=== PATIENT | female | born 2000 | race Caucasian/White ===

== ENCOUNTER 2019-10-21 11:01 | Emergency (ER) | payer OTHER ==
[~2019-10-21] VITALS: Ht 167.6 cm; Wt 60.0 kg
[2019-10-21] MEDS ORDERED: AMITRIPTYLIN100 MG PO (11:09)
[2019-10-21] MEDS ORDERED: CELEBREX100 M1 PO (11:09)
[2019-10-21] MEDS ORDERED: BIRTH CONTROL (11:10)
[2019-10-21] MEDS ORDERED: [UNRECOGNIZED DRUG - OTHER] (11:10)
[2019-10-21 12:55] VITALS: BP 116/64
== END 2019-10-21 12:55 | disposition home or self-care (01) | DRG 605 ==
LOC: ED 11:01
DX: S90.32XA Contusion of left foot, initial encounter (principal); W55.12XA Struck by horse, initial encounter; Y93.K1 Activity, walking an animal; Y92.009 Unspecified place in unspecified non-institutional (private) residence as the place of occurrence of the external cause

== ENCOUNTER 2020-06-20 15:19 | Emergency (ER) | payer OTHER ==
[~2020-06-20] VITALS: Ht 167.6 cm; Wt 45.0 kg
[~2020-06-20 15:19] MED LIST: AMITRIPTYLIN100 MG PO; BIRTH CONTROL; CELEBREX100 M1 PO; [UNRECOGNIZED DRUG - OTHER]
[2020-06-20 16:31] LABS: HEMATOCRIT 39.4 % (37.0-47.0); HEMOGLOBIN 12.7 g/dl (12.0-16.0); IMMATURE GRANULOCYTES 0.1 % (0.0-5.0); MEAN CORPUSCULAR HGB 27.1 pG CALC (26.0-32.0); MEAN CORPUSCULAR HGB CONC 32.2 g/dL CAL (32.0-36.0); NEUT# 4.88 thou/uL (2.00-7.15); RED BLOOD COUNT 4.69 mill/uL (4.20-5.60)
[2020-06-20 16:34] LABS: URINE BILIRUBIN - DIPSTICK NEGATIVE (NEGATIVE); URINE BLOOD DIPSTICK NEGATIVE (NEGATIVE); URINE CLARITY CLEAR; URINE COLOR YELLOW; URINE GLUCOSE - DIPSTICK NEGATIVE (NEGATIVE); URINE KETONE NEGATIVE (NEGATIVE); URINE LEUK ESTERASE NEGATIVE (Negative); URINE NITRITE - DIPSTICK NEGATIVE (Negative); URINE PH 6.5 (4.5-8.0); URINE PROTEIN - DIPSTICK NEGATIVE (NEG-TRACE); URINE SPECIFIC GRAVITY 1.025; URINE UROBILINOGEN - DIPSTICK 0.2 E.U./dL (0.2)
[2020-06-20 16:51] LABS: ALBUMIN 4.2 g/dL (3.2-5.0); ALKALINE PHOSPHATASE 39 u/l (38-126); ANION GAP 10 (6-22 (CALC)); BILIRUBIN, TOTAL 0.7 mg/dL (0.0-1.4); BUN 10 mg/dL (7-17); BUN/CREATININE RATIO 13 (12-20 (CALC)); CARBON DIOXIDE 29 mmol/l (22-30); CHLORIDE 102 mmol/l (95-108); CREATININE 0.8 mg/dL (0.5-1.0); GFR > 60 ML/MIN (>=60 (CALC)); GFR FOR AFR.AMER. > 60 ML/MIN (>=60 (CALC)); POTASSIUM 4.2 mmol/l (3.5-5.1); SGOT/AST 24 u/l (14-36); SODIUM 137 mmol/l (137-146); TOTAL PROTEIN 6.7 g/dL (6.3-8.2)
[2020-06-20 18:50] VITALS: BP 128/89
== END 2020-06-20 18:50 | disposition home or self-care (01) | DRG 556 ==
LOC: ED 15:19
DX: M25.511 Pain in right shoulder (principal)

== ENCOUNTER 2020-10-20 17:05 | Emergency (ER) | payer OTHER ==
[~2020-10-20] VITALS: Ht 165.1 cm; Wt 52.0 kg
[2020-10-20 17:47] VITALS: BP 109/62
== END 2020-10-20 17:52 | disposition home or self-care (01) | DRG 951 ==
LOC: ED 17:05
PROC: 3E0234Z Introduction of Serum, Toxoid and Vaccine into Muscle, Percutaneous Approach (ICD-10-PCS; principal; 2020-10-20)
DX: Z23 Encounter for immunization (principal)

== ENCOUNTER 2020-10-27 20:01 | Emergency (ER) | payer OTHER ==
[~2020-10-27] VITALS: Ht 165.1 cm; Wt 50.0 kg
[2020-10-27 21:16] VITALS: BP 120/60
== END 2020-10-27 21:22 | disposition home or self-care (01) | DRG 951 ==
LOC: ED 20:01
PROC: 3E0234Z Introduction of Serum, Toxoid and Vaccine into Muscle, Percutaneous Approach (ICD-10-PCS; principal; 2020-10-27)
DX: Z23 Encounter for immunization (principal); S81.851D Open bite, right lower leg, subsequent encounter; W55.51XD Bitten by raccoon, subsequent encounter